=== PATIENT | female | born 1955 | race Caucasian/White ===

== ENCOUNTER 2016-08-27 04:12 | Inpatient (IN) ==
--- NOTE | 2016-08-21 10:04 | EKG Report ---
Test Performed on : 08/21/2016 10:01:45 AM Test Reason : PAT Blood Pressure : / mmHG Vent. Rate : 082 BPM Atrial Rate : 082 BPM P-R Int : 118 ms QRS Dur : 080 ms QT Int : 368 ms P-R-T Axes : 058 019 043 degrees QTc Int : 429 ms Normal sinus rhythm. Normal ECG When compared with ECG of 03-DEC-2015 09:32, No significant change was found Confirmed by Ana Rosa CHAMBERS, Dc Jaime ([id number]) on 08/21/2016 6:00:21 PM
[2016-08-21 10:19] LABS: BILIRUBIN URINE NEGATIVE (NEGATIVE); BLOOD URINE NEGATIVE (NEGATIVE); COLOR YELLOW; GLUCOSE URINE NEGATIVE (NEGATIVE); LEUKOCYTES URINE NEGATIVE (NEGATIVE); NITRITE URINE NEGATIVE (NEGATIVE); PH URINE 5.5; PROTEIN URINE NEGATIVE (NEGATIVE); SP GRAVITY URINE 1.005; TURBIDITY URINE CLEAR (CLEAR); UR EPITHELIAL CELLS <10 /HPF (<10); URINE BACTERIA 2+ /HPF; URINE MICRO REVIEW NEEDED? NO; URINE RBC <10 /HPF (<10); URINE SOURCE CLEAN CATCH; URINE WBC <10 /HPF (<10); UROBILINOGEN URINE NORMAL (NORMAL)
[2016-08-21 10:20] LABS: BASO% 0.8 % (0.0-0.8); EOS# 0.12 X1000 (0.0-0.7); EOS% 1.4 % (0.0-10.0); HEMATOCRIT 35.6 % (37.0-47.0); IMM GRAN# 0.02 X1000 (0.0-0.04); IMM GRAN% 0.2 % (0.0-0.5); LYMPH# 2.38 X1000 (1.2-3.4); LYMPH% 27.9 % (20.5-51.1); MANUAL DIFF NEEDED? YES; MCH 22.3 PG (27-31); MCHC 30.9 g/dL (33-37); MCV 72.2 FL (81-99); MONO# 0.55 X1000 (0.11-0.59); MONO% 6.4 % (1.7-9.3); MPV 9.6 FL (7.4-10.4); NEUT% 63.3 % (42.2-75.2); PLT 405 X1000 (130-400); RBC 4.93 XMIL (4.2-5.4)
[2016-08-21 10:31] LABS: PROTIME 10.5 Seconds (9.2-11.7)
[2016-08-21 10:36] LABS: LYMPHS 14 % (21-51); MONO 12 % (1-9)
[2016-08-21 10:45] LABS: AGAP 15; BUN 13 mg/dL (8-22); CALCIUM 9.1 mg/dL (8.8-10.2); CHLORIDE 103 mmol/L (98-107); COSMO 284; POTASSIUM 4.1 mmol/L (3.5-5.1); SODIUM 141 mmol/L (136-145); TCO2 23 mmol/L (25-35)
[2016-08-27] MEDS ORDERED: COLACE ONE (06:30)
[2016-08-27] MEDS ORDERED: PEPCID ONE (06:31)
[2016-08-27] MEDS ORDERED: LR 1,000 ML ONE ×2 (06:31→12:13)
[2016-08-27] MEDS ORDERED: LYRICA ONE (06:31)
[2016-08-27] MEDS ORDERED: CELEBREX ONE (06:31)
[2016-08-27] MEDS ORDERED: REGLAN ONE (06:32)
[2016-08-27] MEDS ORDERED: PHENERGAN ONE (06:33)
[2016-08-27] MEDS ORDERED: DEMEROL ONE (06:33)
[2016-08-27] MEDS ORDERED: KEFZOL 2 GM/D5W 2 GM/50 ML IVPB ONE (06:39)
[2016-08-27] MEDS: DEMEROL ONE ×2 (06:59→07:00)
--- NOTE | 2016-08-27 07:10 | HISTORY AND PHYSICAL ---
CHIEF COMPLAINT: Right shoulder pain. HISTORY OF PRESENT ILLNESS: Ms. Hoang is a 61-year-old white female with a history of right shoulder pain. She had a right total shoulder arthroplasty back about October or November and she is having pain from that shoulder which has progressively gotten worse. She is being admitted to the hospital. IMAGING STUDIES: Imaging reveals possible hardware malfunction. She is being admitted to the hospital today for a right total shoulder arthroplasty. PAST MEDICAL HISTORY: 1. Diabetes. 2. Hypertension. 3. Hyperlipidemia. 4. Acid reflux. 5. Arthritis. PAST SURGICAL HISTORY: 1. Appendectomy. 2. Bilateral total knee arthroplasty. 3. Carpal tunnel surgery. SOCIAL HISTORY: Denies using tobacco, reports using alcohol occasionally. She is . FAMILY HISTORY: Noncontributory. CURRENT MEDICATIONS: 1. Victoza 1.8 mg subcutaneous daily. 2. Januvia 100 mg p.o. daily. 3. Zetia 10 mg p.o. daily. 4. Sulindac 200 mg p.o. b.i.d. 5. Pravachol 80 mg p.o. at bedtime. 6. Glucophage 500 mg p.o. b.i.d. 7. Benicar 40 mg p.o. daily. 8. Nexium 40 mg p.o. daily. 9. Zyrtec 10 mg p.o. daily. 10. Orphenadrine citrate 100 mg p.o. b.i.d. ALLERGIES: No known allergies. REVIEW OF SYSTEMS: HEENT: The patient denies any problem with head, ears, eyes, nose, throat. Cardiac: Patient denies any chest pain, shortness of breath. Pulmonary: The patient denies any coughing, wheezing or shortness of breath. Gastrointestinal: Patient denies any nausea, vomiting, diarrhea. Neurological: Patient denies any neurological deficits. Reports good sensation. Musculoskeletal: Patient reports having right knee pain. PHYSICAL EXAMINATION: HEENT: Head is normocephalic, atraumatic. Pupils equal, round, reactive to light. Nares patent. Throat without exudate. CARDIAC: S1-S2 auscultated. No murmur, rub or gallop noted. LUNGS: Clear to auscultation bilaterally in all lung rasmussen. GASTROINTESTINAL: Abdomen is soft, nontender, nondistended. Bowel sounds present in all quadrants. GENITOURINARY: Not examined. NEUROLOGICAL: Patient has good sensation to dull touch in all extremities. Cranial nerves 2-12 grossly intact. MUSCULOSKELETAL EXAM: Physical exam of the right shoulder reveals pain with palpation. She is able to actively elevate her arm. She has some weakness. She has pain with rotator cuff strength testing. IMPRESSION: Right painful total shoulder arthroplasty. PLAN: We will plan to do a revision of the right total shoulder arthroplasty today. Risks, benefits and alternatives of the surgery were discussed with the patient including risk of anesthesia, bleeding, damage to blood vessels, nerves, tendons, ligaments, and other imponderables were discussed and the patient agrees to proceed with surgery at this time. Dictated by DENNISE Nguyen for Foster Goodwin MD cc: DENNISE Nguyen MD
[2016-08-27] MEDS ORDERED: VERSED ONE (07:48)
[2016-08-27] MEDS ORDERED: TORADOL ONE (07:51)
[2016-08-27] MEDS ORDERED: CYKLOKAPRON 1,000 MG/NS 1,000 MG/100 ML IVPB ONE (07:52)
[2016-08-27] MEDS ORDERED: MARCAINE 0.25% PF/EPI 1:200,000 ONE (07:52)
[2016-08-27] MEDS ORDERED: DURAMORPH ONE (07:52)
[2016-08-27] MEDS ORDERED: SODIUM CHLORIDE 0.9% ONE (07:52)
[2016-08-27] MEDS ORDERED: NEOSPORIN G.U. IRRIGANT ONE (07:54)
[2016-08-27] MEDS ORDERED: EXPAREL 1.3% ONE (07:54)
[2016-08-27] MEDS ORDERED: CLAVE SECONDARY SET 11953 ONE (07:54)
[2016-08-27] MEDS: NAROPIN 0.5% ONE ×2 (07:55→08:19)
[2016-08-27 09:31] LABS: URINE MICRO REVIEW NEEDED? NO; URINE SOURCE CATH
[2016-08-27 09:36] LABS: BILIRUBIN URINE NEGATIVE (NEGATIVE); BLOOD URINE NEGATIVE (NEGATIVE); COLOR YELLOW; GLUCOSE URINE NEGATIVE (NEGATIVE); LEUKOCYTES URINE NEGATIVE (NEGATIVE); NITRITE URINE NEGATIVE (NEGATIVE); PROTEIN URINE NEGATIVE (NEGATIVE); SP GRAVITY URINE 1.017; TURBIDITY URINE CLEAR (CLEAR); UR EPITHELIAL CELLS <10 /HPF (<10); URINE BACTERIA NEGATIVE /HPF; URINE RBC <10 /HPF (<10); URINE WBC <10 /HPF (<10); UROBILINOGEN URINE NORMAL (NORMAL)
[2016-08-27] MEDS ORDERED: NS 1,000 ML ONE (10:29)
--- NOTE | 2016-08-27 10:50 | OPERATIVE NOTE ---
PROCEDURE DATE: 08/27/2016 DATE OF OPERATION: 08/27/2016. PREOPERATIVE DIAGNOSIS: Painful right total shoulder arthroplasty. POSTOPERATIVE DIAGNOSIS: Painful right total shoulder arthroplasty with rotator cuff tear. PROCEDURE: Revision arthroplasty right shoulder with conversion to a reverse total shoulder arthroplasty with DePuy Delta Xtend modular centered epiphysis, BEY coated with a 42+ 3 humeral cup, 42 eccentric Glenosphere, and a standard metaglene. SURGEON: Dr. Foster Goodwin. DINING SERVICES DIRECTOR: Leandro Hernandez. SECOND OPTICAL INSTRUMENT SPECIALIST: Keshawn Alonso RN. ANESTHESIA: General. IV FLUIDS: 1400 mL lactated Ringer's. ESTIMATED BLOOD LOSS: 150 mL. COMPLICATIONS: None. INDICATION: The patient is a pleasant 61-year-old female, who is status post right total shoulder arthroplasty last year on 12/05/2015. The patient has continued with pain and discomfort in the right shoulder. On a recent x-ray, that also appears subluxation of the humeral head, which was suspicious for possible rotator cuff tear. Given patient's continued pain and discomfort, recommendation to proceed with revision arthroplasty was offered. Risks and benefits of surgery were explained, including the risks of anesthesia, , bleeding, infection, failure to relieve pain, postoperative stiffness, nerve injury, blood clots, and other imponderables. All questions were answered, and the patient and family wished to proceed with surgery. DETAILS OF OPERATION: The patient was taken to the operating room and placed supine on the operating table. Once adequate anesthesia was obtained, the patient was placed in semi-[place] beach-chair position. The right shoulder was subsequently prepped and draped in usual sterile fashion. A standard deltopectoral incision was made through the previous surgical incision. Hemostasis was obtained using electrocautery. The deltopectoral interval was then developed. Retractors were then placed. Attention then turned to the elevation and deep Dennis retractors were placed. The evidence of a tear involving the superior aspect of the rotator cuff with visualization of the humeral head noted. Elevation of the subscapularis tendon was then performed, and the head was then removed. Given the patient's underlying rotator cuff tear, decision was to proceed with reverse total shoulder arthroplasty. Then a small rongeur and small osteotome was used on the superior aspect of the stem to remove the modular epiphysis, after this had been performed, removing the modular piece proximally on the humeral stem. After this had been performed, attention was then turned to the glenoid. There was no gross loosening to the glenoid. Deep dissection performed circumferentially around the glenoid. The small osteotome was used to elevate the glenoid. This was removed without difficulty. The guide was then placed in position. Reaming was then conducted. The wound was copiously irrigated. The plastic component was removed on the most superficial aspect. After adequate elevation, the central hole was dilated over the guide pin. After this had been performed, copious irrigation was then performed with antibiotic pulsatile lavage. A standard metaglene was then placed. Three locking screws were placed, but not sewn in. Wound was copiously irrigated once again. This was followed by a 42 eccentric Glenosphere with the eccentricity placed inferiorly. Attention was then turned to the proximal humerus and, using the guide, placed in 20 degrees of retroversion. It was secured in position. The proximal humerus was then reamed. A modular epiphyseal guide was then placed in position. A 42+ 3 humeral cup was then placed and had excellent stability and range of motion. The cup and the modular component were then removed. Copious irrigation was then performed with antibiotic pulsatile lavage. The the modular centered epiphysis BEY coated component was then placed on the stem and had excellent purchase. The wound was copiously irrigated once again. This was followed by a 42+ 3 humeral cup. The shoulder was reduced, carried through range of motion, had excellent stability and range of motion. Exparel was placed in deep soft tissue, as well as subcutaneous tissue. The wound was copiously irrigated once again with antibiotic pulsatile lavage. This was followed by 2-0 Vicryl. Subcutaneous tissue followed by running 2-0 Prolene. Benzoin and Steri-Strips were applied. Adaptic, sterile 4 x 4's, ABD pad, and tape applied to the right shoulder, followed by a shoulder immobilizer. All counts were correct. Patient tolerated the procedure well and was transferred to the recovery room in stable condition. cc: Foster Goodwin MD
[2016-08-27] MEDS ORDERED: DILAUDID PCA VIAL IV PRN (11:09)
[2016-08-27] MEDS ORDERED: NARCAN IV PRN (11:09)
[2016-08-27] MEDS ORDERED: LR 1,000 ML IV SCH (11:09)
[2016-08-27] MEDS ORDERED: MORPHINE IV PRN (11:12)
[2016-08-27] MEDS ORDERED: MILK OF MAGNESIA PO PRN (11:15)
[2016-08-27] MEDS ORDERED: ZOFRAN PO PRN (11:15)
[2016-08-27] MEDS ORDERED: MORPHINE ONE (11:24)
--- NOTE | 2016-08-27 11:30 | Diag Imaging Result Document ---
PROCEDURE NAME: SHOULDER 1 VIEW RIGHT - 08/27/2016 PORTABLE RIGHT SHOULDER: COMPARISON: 12/05/2015. FINDINGS: There is new orthopedic hardware on the current exam. This appears to be well positioned in the humeral shaft. No fracture or dislocation.
[2016-08-27] MEDS ORDERED: ZOFRAN ONE (12:12)
[2016-08-27] MEDS ORDERED: QUELICIN (DOSE) ONE (12:13)
[2016-08-27] MEDS ORDERED: EPHEDRINE ONE (12:13)
[2016-08-27] MEDS ORDERED: DECADRON ONE (12:13)
[2016-08-27] MEDS ORDERED: XYLOCAINE-MPF 2% ONE (12:13)
[2016-08-27] MEDS: GLUCOPHAGE PO SCH ×2 (12:29→17:47)
[2016-08-27] MEDS ORDERED: OFIRMEV 1000 MG/ISOTONIC SOLN 1,000 MG/100 ML BOTTLE ONE (13:23)
[2016-08-27] MEDS ORDERED: CYKLOKAPRON 1,000 MG in NS 100 ML IV ONE (14:30)
[2016-08-27] MEDS: OXY IR PO PRN ×3 (15:07→22:31)
[2016-08-27] MEDS: NS 1,000 ML IV SCH ×2 (15:11→20:32)
[2016-08-27] MEDS: BENICAR PO SCH (15:23)
[2016-08-27] MEDS: NORFLEX PO SCH ×2 (15:24→20:33)
[2016-08-27] MEDS: JANUVIA PO SCH (15:24)
[2016-08-27] MEDS: NEXIUM PO SCH (15:24)
[2016-08-27] MEDS: SULINDAC 200 MG PO SCH ×2 (15:25→20:34)
[2016-08-27] MEDS: ZETIA PO SCH (15:26)
[2016-08-27] MEDS: VICTOZA SUBQ SCH (15:26)
[2016-08-27] MEDS: ZYRTEC PO SCH (15:27)
[2016-08-27] MEDS: KEFZOL 1 GM/D5W 1 GM/50 ML IVPB IV SCH ×2 (15:37→23:29)
[2016-08-27] MEDS: TYLENOL PO SCH ×2 (15:38→20:34)
[2016-08-27] MEDS: PERIDEX MT SCH (20:32)
[2016-08-27] MEDS: COLACE PO SCH (20:33)
[2016-08-27] MEDS ORDERED: PRAVACHOL PO SCH (21:00)
[2016-08-28] MEDS: OXY IR PO PRN ×3 (01:46→09:27)
[2016-08-28] MEDS: NS 1,000 ML IV SCH (02:01)
[2016-08-28] MEDS: TYLENOL PO SCH ×2 (03:40→08:31)
[2016-08-28 05:57] LABS: HEMATOCRIT 28.9 % (37.0-47.0); HEMOGLOBIN 8.7 g/dL (12.0-16.0)
[2016-08-28 06:15] LABS: AGAP 13; BUN 10 mg/dL (8-22); CALCIUM 8.4 mg/dL (8.8-10.2); CHLORIDE 102 mmol/L (98-107); COSMO 277; POTASSIUM 4.1 mmol/L (3.5-5.1); SODIUM 138 mmol/L (136-145); TCO2 23 mmol/L (25-35)
--- NOTE | 2016-08-28 07:16 | PROGRESS NOTE ---
DATE: 08/28/2016 SUBJECTIVE: The patient is a pleasant 61-year-old female who is one day status post right revision arthroplasty, right shoulder. She is currently resting comfortably. OBJECTIVE: On physical exam, dressing is intact. She is neurovascularly distally and is able to actively flex and extend her fingers. LABORATORY DATA: Her hemoglobin is 8.7, hematocrit is 28.9. IMPRESSION: 1. Postop day #1 status post right revision arthroplasty, right shoulder. 2. Acute blood loss anemia. PLAN: At this point, we will change her dressing, discontinue her Hall and Hep-Lock her IV. We will mobilize physical therapy. Plan on discharging home after therapy session. The patient will follow up in the office on 09/08/2016. The patient will plan on outpatient physical therapy. She is currently asymptomatic from her acute blood loss anemia. cc: Foster Goodwin MD
[2016-08-28] MEDS ORDERED: INSULIN PEN NEEDLES ONE (07:32)
[2016-08-28 08:01] VITALS: BP 129/70
[2016-08-28] MEDS: VICTOZA SUBQ SCH (08:29)
[2016-08-28] MEDS: PERIDEX MT SCH (08:30)
[2016-08-28] MEDS: GLUCOPHAGE PO SCH (08:31)
[2016-08-28] MEDS: BENICAR PO SCH (08:31)
[2016-08-28] MEDS: COLACE PO SCH (08:31)
[2016-08-28] MEDS: NEXIUM PO SCH (08:31)
[2016-08-28] MEDS: ZETIA PO SCH (08:32)
[2016-08-28] MEDS: ZYRTEC PO SCH (08:32)
[2016-08-28] MEDS: JANUVIA PO SCH (08:32)
[2016-08-28] MEDS: NORFLEX PO SCH (08:33)
[2016-08-28] MEDS: SULINDAC 200 MG PO SCH (08:35)
[2016-08-28] MEDS ORDERED: DECADRON IV ONE (09:00)
== END 2016-08-28 10:38 | disposition other institution (70) ==
LOC: SURHOLD 04:12 → 4N 08:11
PROVIDERS: ADMIT Orthopaedic Surgery Adult Reconstructive Orthopaedic Surgery; ATTEND Orthopaedic Surgery Adult Reconstructive Orthopaedic Surgery